=== PATIENT | female | born 1970 | race African-American/Black ===

== ENCOUNTER 2020-10-17 09:47 | Emergency (ER) | payer MEDICAID, OTHER ==
[~2020-10-17] VITALS: Ht 157.5 cm; Wt 63.5 kg
[2020-10-17 09:51] VITALS: BP 151/124
[2020-10-17 11:47] LABS: White Blood Cell 3.5 10^3/uL (4.4-10.8)
[2020-10-17 11:50] LABS: Hemoglobin 8.5 g/dL (12.2-16.2); Mean Corpuscular Hemoglobin 18.3 pg (28.0-32.0); Mean Corpuscular Hgb Conc. 29.4 g/dL (32.0-36.0); Mean Corpuscular Volume 62.3 fL (80.0-100.0); Red Blood Cells 4.65 10^6/uL (4.0-5.20)
[2020-10-17 11:51] LABS: Red Cell Distribution Width 21.4 % (11.8-14.3)
[2020-10-17 11:53] LABS: Band Neutrophils % (manual) 0; Basophils % (manual) 0 (0.0-2.0); Blast Cells 0; Metamyelocytes % 0; Myelocytes % 0; Promyelocytes % 0; Reactive Lymphocytes 0
[2020-10-17 12:06] LABS: Albumin 3.3 g/dL (3.4-5.0); Calcium 9.7 mg/dL (8.5-10.1); Potassium 3.6 mmol/L (3.5-5.1)
[2020-10-17 12:10] LABS: Bilirubin, Total 0.2 mg/dL (0.2-1.0); Total Protein 7.6 g/dL (6.4-8.2)
[2020-10-17 13:53] LABS: Eosinophils % (manual) 12 (0-7); Lymphocytes % (manual) 36 (10.0-50.0); Monocytes % (manual) 2 (0-12)
== END 2020-10-17 16:20 | disposition home or self-care (01) ==
LOC: ER 09:47
DX: R07.89 Other chest pain (principal); F41.9 Anxiety disorder, unspecified
CPT/HCPCS: 36415; 80053; 85007; 85027; 93005